=== PATIENT | female | born 2000 | race Two or more races ===

== ENCOUNTER 2024-06-01 00:20 | Emergency (ER) | payer OTHER ==
[~2024-06-01] VITALS: Ht 160 cm; Wt 64.4 kg
[2024-06-01] MEDS ORDERED: ACETAMINOPHEN 500 MG GEL..CAP PO STA (04:19)
== END 2024-06-01 06:25 | disposition home or self-care (01) ==
LOC: ER 00:20
DX: S00.03XA Contusion of scalp, initial encounter (principal); W18.39XA Other fall on same level, initial encounter; Y93.89 Activity, other specified; Y92.511 Restaurant or cafe as the place of occurrence of the external cause